=== PATIENT | female | born 1940 | race Caucasian/White ===

== ENCOUNTER 2018-04-14 10:28 | Emergency (ER) | payer SELFPAY ==
[2018-04-14 10:43] VITALS: BP 130/85; PULSE 87; TEMP 97; BMI 30.2
[2018-04-14] MEDS ORDERED: morphine CARPU-JECT 4 MG/1 ML DISP.SYRIN IVPUSH ONE (11:35)
[2018-04-14] MEDS ORDERED: ONDANSETRON 4 MG/2 ML VIAL IVPB ONE (11:35)
[2018-04-14] MEDS ORDERED: SODIUM CHLORIDE 1,000 ML IV STA (11:35)
--- NOTE | 2018-04-14 11:47 | PDOC ---
History of Present Illness - General Chief Complaint: Pain Stated Complaint: ABDOMINAL PAIN, VOMITING Time Seen by Provider: 04/14/18 11:22 - History of Present Illness Initial Comments: 04/14/18 11:48 "The patient is a 77 year old female, with a significant past medical history of HTN, HLD who presents to the emergency department with abdominal pain and vomiting for the past day. Patient endorses 3 episodes of vomiting associated with diarrhea. Patient reports LLQ pain, radiating to epigastric region associated with 3 episodes of vomiting (nonbilious,nonbloody) and diarrhea. Patient reports decreased appetite and denies taking any medications for relief. Denies abdominal distention. Patient denies chest pain, palpitations, diaphoresis, headache or dizziness. Patient denies fever, chills. Patient denies dysuria, frequency, urgency or hematuria. Patient denies sick contacts or recent travel. Allergies: None Past surgical history: cholecystectomy, hernia repair Social history: denies etoh, smoking, recreational drug use PCP: None " Past History - Past Medical History Allergies/Adverse Reactions: Allergies Allergy/AdvReac Type Severity Reaction Status Date / Time metronidazole Allergy Verified 04/14/18 14:05 COPD: No - Surgical History Abdominal Surgery: Yes - Suicide/Smoking/Psychosocial Hx Smoking History: Never smoked Review of Systems - Review of Systems Comments:: 04/14/18 11:48 "GENERAL/CONSTITUTIONAL: No fever or chills. No weakness. HEAD, EYES, EARS, NOSE AND THROAT: No change in vision. No ear pain or discharge. No sore throat. CARDIOVASCULAR: No chest pain or shortness of breath. RESPIRATORY: No cough, wheezing, or hemoptysis. GASTROINTESTINAL: + abdominal pain, nausea, vomiting, diarrhea. No constipation. GENITOURINARY: No dysuria, frequency, or change in urination. MUSCULOSKELETAL: No joint or muscle swelling or pain. No neck or back pain. SKIN: No rash NEUROLOGIC: No headache, vertigo, loss of consciousness, or change in strength/ sensation. ENDOCRINE: No increased thirst. No abnormal weight change. HEMATOLOGIC/LYMPHATIC: No anemia, easy bleeding, or history of blood clots. ALLERGIC/IMMUNOLOGIC: No hives or skin allergy. " *Physical Exam - Vital Signs Last Vital Signs Temp Pulse Resp BP Pulse Ox 97 F L 87 18 130/85 99 04/14/18 10:39 04/14/18 10:39 04/14/18 10:39 04/14/18 10:39 04/14/18 10:39 - Physical Exam Comments: 04/14/18 11:47 "GENERAL: Awake, alert, and fully oriented, in no acute distress HEAD: No signs of trauma EYES: PERRLA, EOMI, sclera anicteric, conjunctiva clear ENT: Auricles normal inspection, hearing grossly normal, nares patent, oropharynx clear without exudates. Moist mucosa NECK: Nontender, no stepoffs, Normal ROM, supple, no lymphadenopathy, JVD, or masses LUNGS: Breath sounds equal, clear to auscultation bilaterally. No wheezes, and no crackles HEART: Regular rate and rhythm, normal S1 and S2, no murmurs, rubs or gallops ABDOMEN: + LLQ TTP. No guarding, no rebound. No masses EXTREMITIES: Normal range of motion, no edema. No clubbing or cyanosis. No cords, erythema, or tenderness NEUROLOGICAL: Cranial nerves II through XII intact. 5/5 strength and sensation in all extremities, Normal speech, normal gait SKIN: Warm, Dry, normal turgor, no rashes or lesions noted." ED Treatment Course - LABORATORY CBC & Chemistry Diagram: 04/14/18 12:50 04/14/18 12:50 - RADIOLOGY Radiology Studies Ordered: Category Date Time Status ABDOMEN & PELVIS CT WITH CONTR [CT] Stat CT Scan 04/14/18 11:35 Ordered CHEST X-RAY PORTABLE* [RAD] Stat Radiology 04/14/18 11:35 Ordered Medical Decision Making - Medical Decision Making 04/14/18 11:41 77 F with LLQ pain and N/V/D x 2 days. Colitis vs diverticulitis. Pt also with significant surgical history. Will r/o SBO. - Labs - CTAP - IVF, morphine, zofran 04/14/18 16:39 Labs notable for lactate 2.4 CT negative for acute pathology. UA notable for UTI, pt states she is already on abx for this. Pt refusing repeat trop and lactate at this time, stating that she feels better. Pt denies abdominal pain. Tolerating PO. Repeat abdominal exam benign. Low suspicion for bowel ischemia as cause of mildly elevated lactate. Pt also HD stable with no signs of sepsis. Pt understands risk of leaving without having repeat lactate and troponin. The patient is clinically sober, free from distracting injury, appears to have intact insight and judgment and reason and in my opinion has the capacity to make decisions. I have told the patient that if they leave and have abdominal pain, chest pain or shortness of breath, they could get much worse, could become critically ill, and could possibly become disabled or . She is refusing any further care and is leaving against medical advice. I am unable to convince the patient to stay, I have asked them to return as soon as possible to complete their evaluation. *DC/Admit/Observation/Transfer Diagnosis at time of Disposition: Abdominal pain - Discharge Dispostion Disposition: AGAINST MEDICAL ADVICE - Referrals - Patient Instructions Additional Instructions: Because you are leaving against medical advice, we cannot ensure that you are not having a heart attack, a severe infection, or a problem with your intestines. Please return to complete your evaluation as soon as possible. - Post Discharge Activity - Attestations Physician Attestion: 04/14/18 16:46 I, Dr. Liban Thompson MD, attest that this document has been prepared under my direction and personally reviewed by me in its entirety. I further attest, that it accurately reflects all work, treatment, procedures and medical decision -making performed by me.
[2018-04-14] MEDS ORDERED: MORPHINE SULFATE 10 MG/1 ML *VIAL ONE (11:49)
[2018-04-14] MEDS ORDERED: ONDANSETRON 4 MG/2 ML VIAL ONE (11:50)
[2018-04-14 12:49] LABS: URINE APPEARANCE CLOUDY; URINE BILIRUBIN NEGATIVE (<2.0 mg/dL); URINE COLOR AMBER; URINE GLUCOSE (UA) NEGATIVE (NEGATIVE); URINE KETONE NEGATIVE (NEGATIVE); URINE NITRITE NEGATIVE (NEGATIVE); URINE UROBILINOGEN NEGATIVE mg/dL (0.2-1.0)
[2018-04-14 12:50] LABS: URINE LEUK ESTERASE 1+ (NEGATIVE); URINE PROTEIN 1+ (NEGATIVE)
[2018-04-14 12:51] LABS: EPI CELLS FEW /HPF (FEW); URINE BACTERIA RARE /hpf (NONE SEEN); URINE HYALINE CAST 4 /lpf; URINE MUCUS RARE
[2018-04-14 13:11] LABS: HEMATOCRIT 45.2 % (32.4-45.2); INR 0.88 (0.82-1.09); MCH 29.1 pg (25.7-33.7); MCHC 33.1 g/dl (32.0-36.0); MEAN CELL VOLUME 87.7 fl (80-96); MEAN PLT VOLUME 9.1 fl (7.5-11.1); PLATELET COUNT 364 K/MM3 (134-434); RBC 5.15 M/mm3 (3.60-5.2); RDW 14.1 % (11.6-15.6); WHITE BLOOD COUNT 10.9 K/mm3 (4.0-10.0)
[2018-04-14 13:14] LABS: ACTIVATED PTT 20.4 SECONDS (26.9-34.4)
[2018-04-14 13:23] LABS: ALBUMIN 3.8 g/dl (3.4-5.0); ALK PHOS 65 U/L (45-117); ANION GAP 4 (8-16); BILIRUBIN,TOTAL 0.6 mg/dL (0.2-1.0); BLOOD UREA NITROGEN 14 mg/dL (7-18); CALCIUM 11.4 mg/dL (8.5-10.1); CHLORIDE 105 mmol/L (98-107); CO2 30 mmol/L (21-32); GLUCOSE,RANDOM 93 mg/dL (74-106); LIPASE 64 U/L (73-393); SGPT/ALT 26 U/L (12-78); SODIUM 139 mmol/L (136-145); TOT PROT 7.9 g/dl (6.4-8.2)
[2018-04-14 13:24] LABS: POTASSIUM 5.7 mmol/L (3.5-5.1); SGOT/AST 51 U/L (15-37)
[2018-04-14 13:55] LABS: PLATELET ESTIMATE NORMAL
[2018-04-14 14:34] LABS: BASO % 0.7 % (0-2.0); EOS % 0.3 % (0-4.5); LYMPH % 25.7 % (8-40); MONO % 5.1 % (3.8-10.2)
[2018-04-14 14:37] LABS: ADD RBC MORPHOLOGY NO
--- NOTE | 2018-04-15 23:57 | EKG ---
Test Reason : Blood Pressure : / mmHG Vent. Rate : 069 BPM Atrial Rate : 069 BPM P-R Int : 178 ms QRS Dur : 090 ms QT Int : 390 ms P-R-T Axes : 041 -18 -17 degrees QTc Int : 417 ms NORMAL SINUS RHYTHM T WAVE ABNORMALITY, CONSIDER ANTERIOR ISCHEMIA ABNORMAL ECG NO PREVIOUS ECGS AVAILABLE Confirmed by ANGELINA MEDINA, JACINTA ([id number]) on 04/15/2018 11:57:12 PM Referred By: Confirmed By:JACINTA ALFARO MD
== END 2018-04-14 16:48 | disposition left against medical advice (07) ==
LOC: JER 10:28
PROC: 3E033NZ Introduction of Analgesics, Hypnotics, Sedatives into Peripheral Vein, Percutaneous Approach (ICD-10-PCS; principal; 2018-04-14)
PROC: 3E033GC Introduction of Other Therapeutic Substance into Peripheral Vein, Percutaneous Approach (ICD-10-PCS; 2018-04-14)
DX: R10.84 Generalized abdominal pain (principal)
CPT/HCPCS: 36415; 71045-TC-FY; 74177-TC; 80053; 81003; 81015; 82550; 83605; 83690; 84484; 85025; 85610; 85730; 93005; 93010; 99281-25; 99282-25; J7030